=== PATIENT | female | born 1960 | race Caucasian/White ===

== ENCOUNTER 2019-06-19 08:07 | Outpatient (CLI) | payer BC ==
--- NOTE | 2019-06-26 15:35 | MMO ---
Bilateral MAMMO Bilat Screen [facility]. CLINICAL HISTORY: Patient is 59 years old and is seen for screening. The patient has the following family history of breast cancer: mother, at age 62. The patient has no personal history of cancer. VIEWS: The views performed were: bilateral craniocaudal with tomosynthesis and bilateral mediolateral oblique with tomosynthesis. FILMS COMPARED: The present examination has been compared to a prior imaging study performed at [facility] on 08/19/2009. MAMMOGRAM FINDINGS: The breasts are almost entirely fat. There are no suspicious masses, suspicious calcifications, or new areas of architectural distortion. IMPRESSION: THERE IS NO MAMMOGRAPHIC EVIDENCE OF MALIGNANCY. A ROUTINE FOLLOW-UP MAMMOGRAM IN 1 YEAR IS RECOMMENDED. THE RESULTS OF THIS EXAM WERE SENT TO THE PATIENT. ACR BI-RADS Category 1 - Negative MAMMOGRAPHY NOTE: 1. A negative mammogram report should not delay a biopsy if a dominant of clinically suspicious mass is present. 2. Approximately 10% to 15% of breast cancers are not detected by mammography. 3. Adenosis and dense breasts may obscure an underlying neoplasm. Reported by: SANDRA VIEIRA MD Electonically Signed: [id number]
== END 2019-06-19 08:08 | disposition home or self-care (01) ==
LOC: BICMAMMO 08:07
PROVIDERS: ATTEND Physician Assistant
DX: Z12.31 Encounter for screening mammogram for malignant neoplasm of breast (principal); Z80.3 Family history of malignant neoplasm of breast
CPT/HCPCS: 77063; 77067

== ENCOUNTER 2020-08-26 08:19 | Outpatient (CLI) | payer BC ==
--- NOTE | 2020-08-26 09:00 | BD ---
EXAM: Bone densitometry using DEXA HISTORY: 60 yo female. Screening for postmenopausal osteoporosis FINDINGS: L1--bone mineral density 0.986 g/sq cm; T score 0.0 ; Z score 1.2 L2--bone mineral density 0.981 g/sq cm; T score -0.4 ; Z score 0.9 L3--bone mineral density 1.047 g/sq cm; T score -1 3 ; Z score 1.1 L4--bone mineral density 0.969 g/sq cm; T score -0.8 ; Z score 0.6 Total L1-L4--bone mineral density 0.996 g/sq cm; T score 0.5 ; Z score 0.9 Left femoral neck--bone mineral density0.63; T score -2.0 ; Z score -0.8 Total proximal left femur--bone mineral density 0.940; T score 0.0 ; Z score 0.9 The 10 year fracture risk for a major osteoporotic fracture is 14% and for a hip fracture is 1.8%. IMPRESSION: Osteopenia
--- NOTE | 2020-08-26 09:10 | MMO ---
Bilateral MAMMO Bilat Screen [facility]. CLINICAL HISTORY: Patient is 60 years old and is seen for screening. The patient has the following family history of breast cancer: mother, at age 62. The patient has no personal history of cancer. VIEWS: The views performed were: bilateral craniocaudal with tomosynthesis and bilateral mediolateral oblique with tomosynthesis. FILMS COMPARED: The present examination has been compared to prior imaging studies performed at [facility] on 06/19/2019, and at [facility] on 08/19/2009. This study has been interpreted with the assistance of computer-aided detection. MAMMOGRAM FINDINGS: There are no suspicious masses, suspicious calcifications, or new areas of architectural distortion. IMPRESSION: THERE IS NO MAMMOGRAPHIC EVIDENCE OF MALIGNANCY. A ROUTINE FOLLOW-UP MAMMOGRAM IN 1 YEAR IS RECOMMENDED. THE RESULTS OF THIS EXAM WERE SENT TO THE PATIENT. ACR BI-RADS Category 1 - Negative MAMMOGRAPHY NOTE: 1. A negative mammogram report should not delay a biopsy if a dominant of clinically suspicious mass is present. 2. Approximately 10% to 15% of breast cancers are not detected by mammography. 3. Adenosis and dense breasts may obscure an underlying neoplasm. Reported by: YAEL LANGE MD Electonically Signed: [id number]
== END 2020-08-26 08:20 | disposition home or self-care (01) ==
LOC: BICMAMMO 08:19
PROVIDERS: ATTEND Internal Medicine Endocrinology, Diabetes & Metabolism
DX: Z12.31 Encounter for screening mammogram for malignant neoplasm of breast (principal); Z13.820 Encounter for screening for osteoporosis; M85.89 Other specified disorders of bone density and structure, multiple sites; N95.1 Menopausal and female climacteric states; Z80.3 Family history of malignant neoplasm of breast
CPT/HCPCS: 77063; 77067; 77080

== ENCOUNTER 2022-11-20 08:00 | Outpatient (CLI) | payer BC | END 2022-11-20 08:01 | disposition home or self-care (01) | LOC: BICMAMMO 08:00 | PROVIDERS: ATTEND Physician Assistant | DX: Z12.31 Encounter for screening mammogram for malignant neoplasm of breast (principal); Z80.3 Family history of malignant neoplasm of breast | CPT/HCPCS: 77063; 77067 ==

== ENCOUNTER 2025-07-01 13:35 | Outpatient (CLI) | payer BC | END 2025-07-01 13:36 | disposition home or self-care (01) | LOC: BICMAMMO 13:35 | PROVIDERS: ATTEND Physician Assistant | DX: Z12.31 Encounter for screening mammogram for malignant neoplasm of breast (principal); Z80.3 Family history of malignant neoplasm of breast | CPT/HCPCS: 77063; 77067 ==